=== PATIENT | male | born 1975 | race American Indian/Alaskan Native ===

== ENCOUNTER 2018-12-20 06:53 | Day surgery (SDC) | payer OTHER ==
[~2018-12-20 06:53] MED LIST: ANCEF/STERILE WATER 2 GM/20 ML IV NR
--- NOTE | 2018-12-20 07:34 | Anesthesia Consultation ---
Anesthesia Consult and Med Hx Date of service: 12/20/18 - Airway Anesthetic Teeth Evaluation: Good ROM Head & Neck: Adequate Mental/Hyoid Distance: Adequate Mallampati Class: Class II Intubation Access Assessment: Good - Pulmonary Exam CTA: Yes - Cardiac Exam Cardiac Exam: RRR - Pre-Operative Health Status ASA Pre-Surgery Classification: ASA2 - Pulmonary Hx Smoking: No Hx Sleep Apnea: Yes (DX SLEEP APNEA , NO CPAP USE.) - Cardiovascular System Hx Hypertension: No - Central Nervous System Hx Back Pain: Yes (CHRONIC BACK PAIN -TO SILVA LEGS) - Other Systems Hx Cancer: No
--- NOTE | 2018-12-20 07:34 | Anesthesia Day of Surgery ---
Anesthesia Day of Surgery - Day of Surgery Patient Examined: Yes Patient H&P Reviewed: Yes Patient is NPO: Yes
[2018-12-20] MEDS ORDERED: LACTATED RINGERS 1,000 ML IV SCH (09:00)
[2018-12-20] MEDS ORDERED: LACTATED RINGERS 1,000 ML ONE (09:05)
[2018-12-20] MEDS ORDERED: XYLOCAINE CARDIAC IV ONE (09:23)
[2018-12-20] MEDS ORDERED: VERSED ONE (09:23)
[2018-12-20] MEDS ORDERED: DIPRIVAN 10 MG/ML IV ONE (09:24)
[2018-12-20] MEDS ORDERED: SUBLIMAZE ONE (09:24)
[2018-12-20] MEDS ORDERED: MARCAINE-EPI 0.5%-1:200,000 INFILTRATI ONE ×2 (09:37→10:58)
[2018-12-20] MEDS ORDERED: DEPO-Medrol ONE (09:37)
[2018-12-20] MEDS ORDERED: DEPO-Medrol INTRA-ARTI ONE (10:58)
--- NOTE | 2018-12-20 11:00 | Procedure Note ---
Date of procedure: 12/20/18 Pre-op diagnosis: lateral meniscus tear left knee Post-op diagnosis: same Procedure: Arthroscopy left knee with partial lateral meniscectomy Procedure Patient was brought to the or loosening or table in supine position following reduction with Mac anesthesia the patient's left lower extremity was prepped and draped in the usual sterile manner. A timeout procedure was done to identify the patient and the correct operative site. Next the leg was exsanguinated followed by inflation of the pneumatic tourniquet to 300 mmHg. Routine arthroscopic portals were made following introduction of arthroscope and insufation of saline solution the knee examined revealed a fairly large degenerative tear involving the mid to posterior lateral meniscus, the rest of the knee inspected and no other major lesions seen. Using a combination of suction shaver and tissue ablator the lateral meniscus was debrided back to healthier tissue care was taken to copiously irrigate the knee joint a second look was performed there were no remaining soft tissue debris noted next the arthroscope was removed the stem folds were repaired this was followed by injection of Depo-Medrol 80 mg along with half percent Marcaine routine postop proceeds were applied patient tolerated the procedure Anesthesia: MAC Surgeon: RAFA MORRISON Supervisor Finishing: HERIBERTO CRAMER Estimated blood loss: minimal Pathology: none Condition: stable Disposition: PACU
[2018-12-20] MEDS ORDERED: DILAUDID IV PRN (11:33)
[2018-12-20] MEDS ORDERED: DILAUDID ONE (11:36)
[2018-12-20] MEDS ORDERED: NORCO 5/325 ONE (11:37)
[2018-12-20 13:33] VITALS: BP 102/50
== END 2018-12-20 12:40 | disposition home or self-care (01) ==
LOC: OR 06:53
PROVIDERS: ATTEND Orthopaedic Surgery
DX: S83.282A Other tear of lateral meniscus, current injury, left knee, initial encounter (principal); G47.30 Sleep apnea, unspecified; F32.9 Major depressive disorder, single episode, unspecified; Z79.899 Other long term (current) drug therapy; Z98.890 Other specified postprocedural states; X58.XXXA Exposure to other specified factors, initial encounter; Y93.89 Activity, other specified; Y92.89 Other specified places as the place of occurrence of the external cause; Y99.8 Other external cause status
CPT/HCPCS: 29881; J0690; J1030; J1170; J2001; J2250; J2704; J3010; J7120